=== PATIENT | female | born 1940 | race Hispanic/Latino ===

== ENCOUNTER 2017-09-30 18:47 | Emergency (ER) | payer MEDICARE ==
[~2017-09-30 18:47] MED LIST: ASPI-1197 PO; CLOP75TA32 PO; ERGO400T3 PO; EXEN5PEN2 SQ; EZET10TA26 PO; GLYB-226 PO; ISOS60TA4 PO; LINA5TAB PO; METO-408 PO; SIMV40TA5 PO; TRAN4TAB24 PO
[2017-09-30 19:38] LABS: BASOPHILS % (AUTO) 0.6 % (0.0-5.0); EOSINOPHILS % (AUTO) 0.8 % (0.0-8.0); HEMATOCRIT 35.1 % (36-48); LYMPHOCYTES % (AUTO) 35.5 % (21.0-51.0); MEAN CORPUSCULAR HEMOGLOBIN 27.5 pg (27.0-33.0); MEAN CORPUSCULAR HGB CONC 33.5 g/dL (32.0-36.0); MEAN CORPUSCULAR VOLUME 82.1 fL (79-99); NEUTROPHILS % (AUTO) 51.1 % (40.0-77.0); PLATELET COUNT (AUTO) 257 K/uL (130-400); RED BLOOD CELL COUNT(AUTO) 4.28 MIL/uL (4.00-5.50); WHITE BLOOD COUNT (AUTO) 5.5 K/uL (4.8-10.8)
[2017-09-30 19:51] LABS: CREATININE 0.6 mg/dL (0.5-1.5); POTASSIUM 4.1 mmol/L (3.5-5.1)
[2017-09-30 19:55] LABS: ALBUMIN 3.8 g/dL (3.5-5.0); BILIRUBIN,TOTAL 0.3 mg/dL (0.2-1.0); TOTAL PROTEIN, SERUM 7.2 g/dL (6.0-8.3)
== END 2017-09-30 21:31 | disposition home or self-care (01) ==
LOC: EDH 18:47
DX: R10.13 Epigastric pain (principal); I25.10 Atherosclerotic heart disease of native coronary artery without angina pectoris; E11.9 Type 2 diabetes mellitus without complications; E78.5 Hyperlipidemia, unspecified; I10 Essential (primary) hypertension; Z90.49 Acquired absence of other specified parts of digestive tract; Z98.890 Other specified postprocedural states
CPT/HCPCS: 36415; 80053; 82150; 83690; 84484; 85025; 93005

== ENCOUNTER 2017-10-11 17:01 | Observation (INO) | payer MEDICARE ==
[~2017-10-11] VITALS: Ht 160 cm; Wt 51.3 kg
[2017-10-11] MEDS ORDERED: ASPIRIN 81MG TAB.CHEW ONE (17:28)
[2017-10-11 17:42] LABS: BASOPHILS % (AUTO) 0.6 % (0.0-5.0); EOSINOPHILS % (AUTO) 0.8 % (0.0-8.0); HEMATOCRIT 34.5 % (36-48); LYMPHOCYTES % (AUTO) 29.3 % (21.0-51.0); MEAN CORPUSCULAR HEMOGLOBIN 27.7 pg (27.0-33.0); MEAN CORPUSCULAR HGB CONC 34.1 g/dL (32.0-36.0); MEAN CORPUSCULAR VOLUME 81.3 fL (79-99); MONOCYTES % (AUTO) 12.2 % (3.0-13.0); NEUTROPHILS % (AUTO) 57.1 % (40.0-77.0); PLATELET COUNT (AUTO) 255 K/uL (130-400); RED BLOOD CELL COUNT(AUTO) 4.25 MIL/uL (4.00-5.50); RED CELL DISTRIBUTION WIDTH 15.6 % (11.0-15.5); WHITE BLOOD COUNT (AUTO) 5.6 K/uL (4.8-10.8)
[2017-10-11] MEDS ORDERED: NITROGLYCERIN 0.4 MG SL TAB SL ONE (17:49)
[2017-10-11 18:02] LABS: CREATININE 0.6 mg/dL (0.5-1.5); POTASSIUM 4.2 mmol/L (3.5-5.1)
[2017-10-11 18:06] LABS: ALBUMIN 3.8 g/dL (3.5-5.0); BILIRUBIN,TOTAL 0.4 mg/dL (0.2-1.0); CREATINE KINASE MB 0.7 ng/mL (0.5-3.6); TOTAL PROTEIN, SERUM 7.8 g/dL (6.0-8.3)
[2017-10-11 22:02] LABS: CREATINE KINASE MB < 0.5 ng/mL (0.5-3.6); CREATINE KINASE, TOTAL 49 U/L (21-232); MYOGLOBIN 26 ng/mL (10-92); TROPONIN I < 0.04 ng/mL (0.00-0.06)
[2017-10-12 04:13] LABS: CREATINE KINASE MB < 0.5 ng/mL (0.5-3.6); CREATINE KINASE, TOTAL 44 U/L (21-232); MYOGLOBIN 23 ng/mL (10-92); TROPONIN I < 0.04 ng/mL (0.00-0.06)
[2017-10-12 04:40] VITALS: BP 156/72
[2017-10-12] MEDS ORDERED: OMEP20TA25 PO (05:05)
[2017-10-12] MEDS ORDERED: DULA0.75 SQ (05:05)
[2017-10-12] MEDS ORDERED: GLIP1TAB6 PO (05:05)
[2017-10-12] MEDS: INSULIN R PO SS1 SQ SCH ×4 (06:44→20:49)
[2017-10-12] MEDS: METFORMIN HCL 500 MG TABLET PO SCH ×2 (07:43→16:45)
[2017-10-12] MEDS: GLIPIZIDE 5 MG TABLET PO SCH ×2 (07:43→16:45)
[2017-10-12 08:00] VITALS: BP 112/53
[2017-10-12] MEDS: ISOSORBIDE MONO 60 MG TAB.SR PO SCH (08:45)
[2017-10-12] MEDS: EZETIMIBE 10 MG TAB PO SCH (08:45)
[2017-10-12] MEDS: ASPIRIN 81MG TAB.CHEW PO SCH (08:45)
[2017-10-12] MEDS: CLOPIDOGREL BISULFATE 75 MG TAB PO SCH (08:46)
[2017-10-12] MEDS: METOPROLOL TARTRATE 25 MG TAB PO SCH ×2 (08:46→20:44)
[2017-10-12] MEDS: PANTOPRAZOLE SODIUM 40 MG TABLET.DR PO SCH (08:47)
[2017-10-12] MEDS: LISINOPRIL 20 MG TABLET PO SCH (08:47)
[2017-10-12] MEDS ORDERED: LINAGLIPTIN 5 MG TABLET PO SCH (09:00)
[2017-10-12] MEDS ORDERED: ERGOCALCIFEROL (VITAMIN D2) 50,000 UNIT CAPSULE PO SCH (09:00)
[2017-10-12 11:55] VITALS: BP 103/66
[2017-10-12 16:00] VITALS: BP 109/67
[2017-10-12 19:37] VITALS: BP 116/70
[2017-10-12] MEDS: ATORVASTATIN CALCIUM 20 MG TABLET PO SCH (20:44)
[2017-10-12 23:26] VITALS: BP 101/48
[2017-10-13 04:48] VITALS: BP 101/64
[2017-10-13] MEDS: INSULIN R PO SS1 SQ SCH ×4 (05:46→21:00)
[2017-10-13 07:53] VITALS: BP 109/61
[2017-10-13] MEDS: ISOSORBIDE MONO 60 MG TAB.SR PO SCH (09:00)
[2017-10-13] MEDS: LISINOPRIL 20 MG TABLET PO SCH (09:00)
[2017-10-13] MEDS: ASPIRIN 81MG TAB.CHEW PO SCH (09:02)
[2017-10-13] MEDS: METOPROLOL TARTRATE 25 MG TAB PO SCH ×2 (09:03→22:23)
[2017-10-13] MEDS: PANTOPRAZOLE SODIUM 40 MG TABLET.DR PO SCH (09:04)
[2017-10-13] MEDS: EZETIMIBE 10 MG TAB PO SCH (09:04)
[2017-10-13] MEDS: CLOPIDOGREL BISULFATE 75 MG TAB PO SCH (09:04)
[2017-10-13] MEDS: ACETAMINOPHEN 325 MG TAB PO PRN ×2 (09:18→22:23)
[2017-10-13 11:42] VITALS: BP 112/65
[2017-10-13 15:32] VITALS: BP 137/74
[2017-10-13 20:13] VITALS: BP 149/82
[2017-10-13] MEDS: ATORVASTATIN CALCIUM 20 MG TABLET PO SCH (22:23)
[2017-10-14 00:19] VITALS: BP 123/72
[2017-10-14 03:50] VITALS: BP 127/65
[2017-10-14] MEDS: INSULIN R PO SS1 SQ SCH ×4 (06:12→20:43)
[2017-10-14 07:44] VITALS: BP 137/72
[2017-10-14] MEDS ORDERED: **HM** TRULICITY 0.75MG PO SCH (09:00)
[2017-10-14] MEDS: EZETIMIBE 10 MG TAB PO SCH (09:00)
[2017-10-14] MEDS: CLOPIDOGREL BISULFATE 75 MG TAB PO SCH (09:00)
[2017-10-14] MEDS: LISINOPRIL 20 MG TABLET PO SCH (09:00)
[2017-10-14] MEDS: ISOSORBIDE MONO 60 MG TAB.SR PO SCH (09:00)
[2017-10-14] MEDS: METOPROLOL TARTRATE 25 MG TAB PO SCH ×2 (09:00→20:43)
[2017-10-14] MEDS: ASPIRIN 81MG TAB.CHEW PO SCH (09:00)
[2017-10-14] MEDS: PANTOPRAZOLE SODIUM 40 MG TABLET.DR PO SCH (09:00)
[2017-10-14] MEDS ORDERED: REGADENOSON 0.4 MG/5 ML PF SYG IVP SCH (11:15)
[2017-10-14 11:24] VITALS: BP 132/73
[2017-10-14 16:00] VITALS: BP 167/88
[2017-10-14 20:00] VITALS: BP 146/69
[2017-10-14] MEDS: ATORVASTATIN CALCIUM 20 MG TABLET PO SCH (20:43)
== END 2017-10-14 21:00 | disposition home or self-care (01) ==
LOC: EDH 17:01 → EDHIP 21:30 → 4CH 10-12 05:37
PROVIDERS: ADMIT Internal Medicine Nephrology; ATTEND Internal Medicine Nephrology
DX: R07.89 Other chest pain (principal); I25.10 Atherosclerotic heart disease of native coronary artery without angina pectoris; E11.42 Type 2 diabetes mellitus with diabetic polyneuropathy; E78.00 Pure hypercholesterolemia, unspecified; I10 Essential (primary) hypertension; Z95.5 Presence of coronary angioplasty implant and graft; Z79.899 Other long term (current) drug therapy
CPT/HCPCS: 36415 ×2; 71046; 78452; 80053; 82550 ×3; 82553 ×3; 82948 ×12; 83874 ×2; 84484 ×3; 85025; 93005 ×2; 93017; 96372; 99291; A9500 ×2; G0378 ×71; J1815; J2785; 96374

== ENCOUNTER 2018-06-29 09:04 | Emergency (ER) | payer MEDICARE ==
[~2018-06-29 09:04] MED LIST changes: +DULA0.75 SQ; -EXEN5PEN2 SQ; +GLIP1TAB6 PO; -GLYB-226 PO; +OMEP20TA25 PO
[2018-06-29 10:25] LABS: BASOPHILS % (AUTO) 0.5 % (0.0-5.0); EOSINOPHILS % (AUTO) 0.3 % (0.0-8.0); HEMATOCRIT 40.7 % (36-48); LYMPHOCYTES % (AUTO) 28.2 % (21.0-51.0); MEAN CORPUSCULAR HEMOGLOBIN 27.7 pg (27.0-33.0); MEAN CORPUSCULAR HGB CONC 33.5 g/dL (32.0-36.0); MEAN CORPUSCULAR VOLUME 82.5 fL (79-99); MONOCYTES % (AUTO) 8.9 % (3.0-13.0); NEUTROPHILS % (AUTO) 62.1 % (40.0-77.0); PLATELET COUNT (AUTO) 286 K/uL (130-400); RED BLOOD CELL COUNT(AUTO) 4.93 MIL/uL (4.00-5.50); RED CELL DISTRIBUTION WIDTH 15.1 % (11.0-15.5); WHITE BLOOD COUNT (AUTO) 5.6 K/uL (4.8-10.8)
[2018-06-29] MEDS ORDERED: TETANUS/DIPHTHERIA TOXOID [ADULT] 0.5 ML VIAL IM ONE (10:35)
[2018-06-29 10:37] LABS: CREATININE 0.7 mg/dL (0.5-1.5); POTASSIUM 4.2 mmol/L (3.5-5.1)
[2018-06-29 10:39] LABS: INR 0.94 (0.85-1.15); PARTIAL THROMBOPLASTIN TIME 26.8 SEC (26.3-35.5); PROTHROMBIN TIME 9.9 SEC (9.6-11.6)
[2018-06-29 10:43] LABS: ALBUMIN 4.1 g/dL (3.5-5.0); BILIRUBIN,TOTAL 0.8 mg/dL (0.2-1.0); TOTAL PROTEIN, SERUM 8.2 g/dL (6.0-8.3)
== END 2018-06-29 11:21 | disposition home or self-care (01) ==
LOC: EDH 09:04
DX: S09.90XA Unspecified injury of head, initial encounter (principal); S50.311A Abrasion of right elbow, initial encounter; S50.811A Abrasion of right forearm, initial encounter; I10 Essential (primary) hypertension; E11.9 Type 2 diabetes mellitus without complications; E78.5 Hyperlipidemia, unspecified; I25.10 Atherosclerotic heart disease of native coronary artery without angina pectoris; Z90.710 Acquired absence of both cervix and uterus; Z98.890 Other specified postprocedural states; Z79.4 Long term (current) use of insulin; W01.0XXA Fall on same level from slipping, tripping and stumbling without subsequent striking against object, initial encounter; Y93.89 Activity, other specified; Y92.009 Unspecified place in unspecified non-institutional (private) residence as the place of occurrence of the external cause; Y99.8 Other external cause status
CPT/HCPCS: 36415; 70450; 71045; 72100; 72125; 80053; 82550; 84484; 85025; 85610; 85730; 90471; 90714; 93005

== ENCOUNTER → 2020-08-01 | Outpatient (CLI) | payer MEDICARE ==
[~2020-08-01] MED LIST changes: -EZET10TA26 PO; +EZET10TA48 PO; +REGADENOSON 0.4 MG/5 ML PF SYG IVP SCH; +SIMV-46 PO; -SIMV40TA5 PO
== END | disposition home or self-care (01) ==
LOC: SHCH 08:21
PROVIDERS: ATTEND Internal Medicine Cardiovascular Disease
DX: I25.119 Atherosclerotic heart disease of native coronary artery with unspecified angina pectoris (principal); R05 Cough; R06.00 Dyspnea, unspecified
CPT/HCPCS: 78452; 93017; 96374; A9500 ×2; J2785

== ENCOUNTER 2020-10-26 20:53 | Observation (INO) | payer MEDICARE ==
[~2020-10-26] VITALS: Ht 152.4 cm; Wt 54.4 kg
[~2020-10-26 20:53] MED LIST changes: -ISOS60TA4 PO; +ISOS60TA77 PO; -REGADENOSON 0.4 MG/5 ML PF SYG IVP SCH; -TRAN4TAB24 PO; +TRAN4TAB25 PO
[2020-10-26] MEDS ORDERED: ASPIRIN 325 MG TABLET ONE (21:06)
[2020-10-26 21:09] LABS: BASOPHILS % (AUTO) 0.5 % (0.0-5.0); EOSINOPHILS % (AUTO) 1.2 % (0.0-8.0); LYMPHOCYTES % (AUTO) 48.2 % (21.0-51.0); MEAN CORPUSCULAR HEMOGLOBIN 26.4 pg (27.0-33.0); MEAN CORPUSCULAR HGB CONC 32.1 g/dL (32.0-36.0); MEAN CORPUSCULAR VOLUME 82.1 fL (79-99); MONOCYTES % (AUTO) 12.3 % (3.0-13.0); NEUTROPHILS % (AUTO) 37.8 % (40.0-77.0); PLATELET COUNT (AUTO) 246 K/uL (130-400); RED BLOOD CELL COUNT(AUTO) 4.02 MIL/uL (4.00-5.50); RED CELL DISTRIBUTION WIDTH 16.1 % (11.0-15.5); WHITE BLOOD COUNT (AUTO) 5.8 K/uL (4.8-10.8)
[2020-10-26 21:24] LABS: CREATININE 0.7 mg/dL (0.5-1.5)
[2020-10-26 21:29] LABS: ALBUMIN 3.9 g/dL (3.5-5.0); BILIRUBIN,TOTAL 0.6 mg/dL (0.2-1.0); TOTAL PROTEIN, SERUM 7.1 g/dL (6.0-8.3)
[2020-10-26 21:31] LABS: INR 0.96 (0.85-1.15); PROTHROMBIN TIME 10.5 SEC (9.6-11.6)
[2020-10-26 21:33] LABS: B-TYPE NATRIURETIC PEPTIDE 38 pg/mL (0-100); PARTIAL THROMBOPLASTIN TIME 25.2 SEC (26.3-35.5)
[2020-10-26] MEDS ORDERED: ONDANSETRON HCL 4 MG/2 ML VIAL IVP PRN (23:45)
[2020-10-26] MEDS ORDERED: DEXTROSE 50%-WATER 50 ML DISP.SYRIN IV PRN (23:45)
[2020-10-26] MEDS ORDERED: MORPHINE SULFATE 2 MG/ML 1ML SYG IVP PRN (23:45)
[2020-10-26] MEDS ORDERED: ACETAMINOPHEN 325 MG TAB PO PRN (23:45)
[2020-10-26] MEDS ORDERED: GLUCAGON 1MG KIT 1 MG ML IM PRN (23:45)
[2020-10-27] VITALS: BP 116/72
[2020-10-27 03:47] VITALS: BP 148/75
[2020-10-27] MEDS: INSULIN R PO SS1 SQ SCH ×3 (05:59→17:03)
[2020-10-27] MEDS ORDERED: ATOR40TA71 PO (06:46)
[2020-10-27] MEDS ORDERED: PANT40TA PO (06:46)
[2020-10-27] MEDS ORDERED: GLIP10TA9 PO (06:46)
[2020-10-27] MEDS ORDERED: TRAZ-185 PO (06:46)
[2020-10-27] MEDS ORDERED: CITA-107 PO (06:46)
[2020-10-27 08:12] VITALS: BP 148/62
[2020-10-27] MEDS ORDERED: METOPROLOL TARTRATE 25 MG TAB PO SCH (09:00)
[2020-10-27] MEDS ORDERED: ENOXAPARIN SODIUM 40 MG/0.4 ML SYRINGE SQ SCH (09:00)
[2020-10-27] MEDS ORDERED: ASPIRIN 81 MG EC TAB PO SCH (09:00)
[2020-10-27 12:00] VITALS: BP_SYST 138; BP_SYST 148; BP_DIAS 63; BP_DIAS 67
== END 2020-10-27 18:00 | disposition home or self-care (01) ==
LOC: EDH 20:53 → INTOOBSV 22:31 → EDHIP 22:31 → 4BH 23:40
PROVIDERS: ADMIT Internal Medicine Infectious Disease; ATTEND Internal Medicine Infectious Disease
DX: R07.89 Other chest pain (principal); I25.10 Atherosclerotic heart disease of native coronary artery without angina pectoris; I10 Essential (primary) hypertension; D64.9 Anemia, unspecified; E11.51 Type 2 diabetes mellitus with diabetic peripheral angiopathy without gangrene; E78.5 Hyperlipidemia, unspecified; K21.9 Gastro-esophageal reflux disease without esophagitis; F41.9 Anxiety disorder, unspecified; Z95.5 Presence of coronary angioplasty implant and graft; Z90.710 Acquired absence of both cervix and uterus; Z90.49 Acquired absence of other specified parts of digestive tract; Z79.899 Other long term (current) drug therapy
CPT/HCPCS: 36415; 71045; 80053; 82550; 82948 ×3; 83880; 84484 ×3; 85025; 85610; 85730; 93005; 99285; G0378 ×19

== ENCOUNTER 2021-12-22 18:22 | Emergency (ER) | payer MEDICARE ==
[~2021-12-22] VITALS: Ht 160 cm; Wt 47.6 kg
[~2021-12-22 18:22] MED LIST changes: +ATOR40TA71 PO; +CITA-107 PO; +CLOP75TA14 PO; -CLOP75TA32 PO; +GLIP10TA9 PO; -GLIP1TAB6 PO; -LINA5TAB PO; +MECL-160 PO; +MELA10TA2 PO; +METO-391 PO; -METO-408 PO; -OMEP20TA25 PO; +PANT40TA PO; +ROPI0.5T7 PO; -SIMV-46 PO; +TRAZ-185 PO
[2021-12-22] MEDS ORDERED: ACETAMINOPHEN 500 MG TABLET PO ONE (18:30)
[2021-12-22 19:00] VITALS: BP 155/77
[2021-12-22] MEDS ORDERED: ACET-66 PO (19:19)
== END 2021-12-22 19:59 | disposition home or self-care (01) ==
LOC: EDH 18:22
DX: S00.03XA Contusion of scalp, initial encounter (principal); X58.XXXA Exposure to other specified factors, initial encounter; I11.0 Hypertensive heart disease with heart failure; I50.9 Heart failure, unspecified; E11.9 Type 2 diabetes mellitus without complications; E78.00 Pure hypercholesterolemia, unspecified; Z79.02 Long term (current) use of antithrombotics/antiplatelets; Z79.82 Long term (current) use of aspirin; Z79.899 Other long term (current) drug therapy; W18.39XA Other fall on same level, initial encounter; Y93.89 Activity, other specified; Y92.89 Other specified places as the place of occurrence of the external cause; Y99.8 Other external cause status
CPT/HCPCS: 70450; 71045; 72125; 72170; 93005

== ENCOUNTER 2022-02-21 13:52 | Inpatient (IN) | payer MEDICARE ==
[~2022-02-21] VITALS: Ht 152.4 cm; Wt 53.1 kg
[~2022-02-21 13:52] MED LIST changes: +ACET-66 PO
[2022-02-21] MEDS ORDERED: FAMOTIDINE 20MG TAB PO ONE (14:30)
[2022-02-21] MEDS ORDERED: ONDANSETRON 4MG INJ IVP ONE (14:30)
[2022-02-21] MEDS ORDERED: MORPHINE 2 MG SYG IVP ONE (14:30)
[2022-02-21] MEDS ORDERED: LACTATED RINGERS 1000ML 1,000 ML IV ONE (14:30)
[2022-02-21 14:32] LABS: APPEARANCE,URINE Clear (CLEAR); BILIRUBIN,URINE Negative (NEGATIVE); COLOR,URINE Yellow (YELLOW); GLUCOSE, URINE (UA) >=1000 mg/dL (NEGATIVE); KETONES,URINE Negative (NEGATIVE); LEUKOCYTE ESTERASE ,URINE Negative (NEGATIVE); NITRATE,URINE Negative (NEGATIVE); OCCULT BLOOD,URINE Negative (NEGATIVE); PH,URINE 5.5 (5.0-8.0); PROTEIN,URINE Negative (NEGATIVE)
[2022-02-21 14:48] LABS: BASOPHILS % (AUTO) 0.5 % (0.0-5.0); EOSINOPHILS % (AUTO) 0.5 % (0.0-8.0); HEMATOCRIT 39.5 % (36-48); MEAN CORPUSCULAR HEMOGLOBIN 25.8 pg (27.0-33.0); MEAN CORPUSCULAR HGB CONC 31.4 g/dL (32.0-36.0); MEAN CORPUSCULAR VOLUME 82.3 fL (79-99); MONOCYTES % (AUTO) 8.8 % (3.0-13.0); PLATELET COUNT (AUTO) 295 K/uL (130-400); RED CELL DISTRIBUTION WIDTH 15.3 % (11.0-15.5); WHITE BLOOD COUNT (AUTO) 5.9 K/uL (4.8-10.8)
[2022-02-21 14:59] LABS: BACTERIA,URINE Rare /HPF (None Seen); RBC,URINE 0-1 /HPF (0-1); SQUAMOUS EPITHELIAL CELL,UR Rare /HPF (0-2); WBC,URINE 0-1 /HPF (0-1)
[2022-02-21 15:00] LABS: CREATININE 0.9 mg/dL (0.5-1.5); POTASSIUM 4.1 mmol/L (3.5-5.1)
[2022-02-21] MEDS ORDERED: IOHEXOL 350 MG/ML 100ML INFUS..BTL IV ONE (15:00)
[2022-02-21 15:07] LABS: ALBUMIN 3.6 g/dL (3.5-5.0)
[2022-02-21] MEDS ORDERED: ASPIRIN 81MG CHEW TAB PO ONE (15:30)
[2022-02-21] MEDS ORDERED: CLOPIDOGREL 300MG TAB ONE (16:19)
[2022-02-21] MEDS ORDERED: ONDANSETRON 4MG INJ IVP PRN (16:30)
[2022-02-21] MEDS ORDERED: TRAZ-187 PO (16:42)
[2022-02-21] MEDS ORDERED: MECLIZINE HCL 25 MG TABLET PO PRN (17:00)
[2022-02-21] MEDS ORDERED: CLOPIDOGREL 300MG TAB PO ONE (17:00)
[2022-02-21] MEDS ORDERED: HEPARIN 25,000 UNITS/250ML D5W 250 ML IV SCH (17:00)
[2022-02-21 17:33] LABS: INR 0.93 (0.85-1.15)
[2022-02-21 17:35] LABS: PARTIAL THROMBOPLASTIN TIME 25.7 SEC (26.3-35.5)
[2022-02-21] MEDS: GLIPIZIDE 5 MG TABLET PO SCH (20:57)
[2022-02-21] MEDS: ATORVASTATIN 40 MG TABLET PO SCH (20:57)
[2022-02-21] MEDS: TRAZODONE HCL 100 MG TABLET PO SCH (20:57)
[2022-02-21 21:29] VITALS: BP 122/63
[2022-02-21 23:32] VITALS: BP 115/56
[2022-02-22 00:02] LABS: INR 0.98 (0.85-1.15); PROTHROMBIN TIME 10.7 SEC (9.6-11.6)
[2022-02-22 00:03] LABS: PARTIAL THROMBOPLASTIN TIME 52.7 SEC (26.3-35.5)
[2022-02-22 03:30] VITALS: BP 128/64
[2022-02-22 05:39] LABS: BASOPHILS % (AUTO) 0.6 % (0.0-5.0); EOSINOPHILS % (AUTO) 1.7 % (0.0-8.0); HEMATOCRIT 37.7 % (36-48); LYMPHOCYTES % (AUTO) 32.8 % (21.0-51.0); MEAN CORPUSCULAR HGB CONC 31.6 g/dL (32.0-36.0); MEAN CORPUSCULAR VOLUME 82.5 fL (79-99); MONOCYTES % (AUTO) 13.8 % (3.0-13.0); NEUTROPHILS % (AUTO) 50.9 % (40.0-77.0); PLATELET COUNT (AUTO) 253 K/uL (130-400); RED BLOOD CELL COUNT(AUTO) 4.57 MIL/uL (4.00-5.50); RED CELL DISTRIBUTION WIDTH 15.2 % (11.0-15.5); WHITE BLOOD COUNT (AUTO) 5.3 K/uL (4.8-10.8)
[2022-02-22 05:47] LABS: HEMOGLOBIN A1C 8.1 % (4.0-6.0)
[2022-02-22 06:11] LABS: CREATININE 0.7 mg/dL (0.5-1.5); MAGNESIUM 1.6 mg/dL (1.80-2.40)
[2022-02-22] MEDS: PANTOPRAZOLE 40 MG TAB DR PO SCH (06:31)
[2022-02-22 07:50] VITALS: BP 135/61
[2022-02-22] MEDS: GLIPIZIDE 5 MG TABLET PO SCH ×2 (08:00→17:00)
[2022-02-22] MEDS: PANTOPRAZOLE 40 MG/VIAL IVP SCH (08:19)
[2022-02-22] MEDS: METOPROLOL SUCCINATE 50 MG TAB.SR.24H PO SCH (08:20)
[2022-02-22] MEDS: ROPINIROLE HCL 0.25 MG TABLET PO SCH (08:20)
[2022-02-22] MEDS: CITALOPRAM 20 MG TABLET PO SCH (08:20)
[2022-02-22] MEDS: EZETIMIBE 10 MG TAB PO SCH (08:20)
[2022-02-22] MEDS: ASPIRIN 325MG TAB PO SCH (08:20)
[2022-02-22] MEDS ORDERED: CLOPIDOGREL 75MG TAB PO SCH (09:00)
[2022-02-22] MEDS ORDERED: ENOXAPARIN SODIUM 40 MG/0.4 ML SYRINGE SQ SCH (09:00)
[2022-02-22] MEDS ORDERED: ISOSORBIDE MONO 60MG SR TAB PO SCH (09:00)
[2022-02-22 11:22] VITALS: BP 135/71
[2022-02-22 15:53] VITALS: BP 151/65
[2022-02-22 19:33] VITALS: BP 129/70
[2022-02-22] MEDS: TRAZODONE HCL 100 MG TABLET PO SCH (20:07)
[2022-02-22] MEDS: ATORVASTATIN 40 MG TABLET PO SCH (20:07)
[2022-02-22 23:00] VITALS: BP 162/84
[2022-02-23] VITALS (8 sets, daily range): BP systolic 86–155; BP diastolic 56–79
[2022-02-23 03:22] LABS: ABG BASE EXCESS 3.5 mmol/L (-2.0-3.0); ABG HCO3 27.6 mmol/L (21.0-28.0); ABG OXYGEN SATURATION 97.4 % (95.0-99.0); ABG PCO2 40 mmHg (32-45)
[2022-02-23 04:20] LABS: HEMATOCRIT 36.6 % (36-48); MEAN CORPUSCULAR HEMOGLOBIN 25.7 pg (27.0-33.0); MEAN CORPUSCULAR HGB CONC 31.7 g/dL (32.0-36.0); MEAN CORPUSCULAR VOLUME 81.2 fL (79-99); RED BLOOD CELL COUNT(AUTO) 4.51 MIL/uL (4.00-5.50); RED CELL DISTRIBUTION WIDTH 15.2 % (11.0-15.5); WHITE BLOOD COUNT (AUTO) 5.1 K/uL (4.8-10.8)
[2022-02-23 04:22] LABS: HEMOGLOBIN A1C 8.1 % (4.0-6.0); INR 0.95 (0.85-1.15); PROTHROMBIN TIME 10.4 SEC (9.6-11.6)
[2022-02-23 04:23] LABS: PARTIAL THROMBOPLASTIN TIME 25.6 SEC (26.3-35.5)
[2022-02-23 04:35] LABS: ALBUMIN 3.1 g/dL (3.5-5.0); CREATININE 0.8 mg/dL (0.5-1.5); POTASSIUM 3.9 mmol/L (3.5-5.1); TOTAL PROTEIN, SERUM 7.1 g/dL (6.0-8.3)
[2022-02-23] MEDS: PANTOPRAZOLE 40 MG TAB DR PO SCH (06:02)
[2022-02-23] MEDS: GLIPIZIDE 5 MG TABLET PO SCH (08:00)
[2022-02-23] MEDS ORDERED: EPINEPHRINE PF 1MG AMP 10 MG in 0.9% NACL 250ML 240 ML IV PRN ×2 (09:00→17:30)
[2022-02-23] MEDS ORDERED: AMINOCAPROIC ACID 5,000MG VIAL 15,000 MG in 0.9% NACL 500ML IV.SOLN 420 ML IV PRN (09:00)
[2022-02-23] MEDS: METOPROLOL SUCCINATE 50 MG TAB.SR.24H PO SCH ×2 (09:00→10:18)
[2022-02-23] MEDS: ROPINIROLE HCL 0.25 MG TABLET PO SCH (09:00)
[2022-02-23] MEDS ORDERED: NOREPINEPHRINE BITARTRATE 8 MG in DEXTROSE 5%-WATER 250 ML IV PRN (09:00)
[2022-02-23] MEDS: ASPIRIN 325MG TAB PO SCH (09:00)
[2022-02-23] MEDS: CITALOPRAM 20 MG TABLET PO SCH (09:00)
[2022-02-23] MEDS: PANTOPRAZOLE 40 MG/VIAL IVP SCH (09:25)
[2022-02-23] MEDS: EZETIMIBE 10 MG TAB PO SCH (10:03)
[2022-02-23] MEDS ORDERED: NITROGLYCERIN 50MG/D5W 250ML 1 BOT ONE (13:12)
[2022-02-23] MEDS ORDERED: CEFAZOLIN SODIUM 1 GM VIAL IVP PRN (14:00)
[2022-02-23] MEDS ORDERED: FENTANYL CITRATE PF 50 MCG/1 ML 20ML VIAL IJ ONE (15:16)
[2022-02-23] MEDS ORDERED: PROTAMINE SULFATE 10 MG/ML 25ML VIAL IV ONE (15:16)
[2022-02-23] MEDS ORDERED: PROPOFOL 10 MG/ML 20ML VIAL IV ONE (15:16)
[2022-02-23] MEDS ORDERED: AMINOCAPROIC ACID 5,000MG VIAL ONE (15:16)
[2022-02-23] MEDS ORDERED: HEPARIN 10,000 UNIT/10ML (1,000 UNIT/ML) VIAL ONE ×2 (15:16→16:34)
[2022-02-23] MEDS ORDERED: ESMOLOL HCL 10 MG/ML 10 ML VIAL ONE (15:16)
[2022-02-23] MEDS ORDERED: LIDOCAINE PF 100MG/5ML (2%) SYRINGE 5ML ONE (15:16)
[2022-02-23] MEDS ORDERED: SODIUM BICARB 50MEQ 50ML VIAL 100 ML ONE (15:16)
[2022-02-23] MEDS ORDERED: NOREPINEPHRINE BITARTRATE 1 MG/1 ML ML IV ONE (15:16)
[2022-02-23] MEDS ORDERED: EPINEPHRINE PF 1MG AMP ONE (15:16)
[2022-02-23] MEDS ORDERED: KETAMINE 50MG/ML SYRINGE 50 MG/ML DISP.SYRIN IV ONE (15:17)
[2022-02-23] MEDS ORDERED: ROCURONIUM 10MG/1ML SYR 10 MG/ML ML ONE (15:17)
[2022-02-23] MEDS ORDERED: MIDAZOLAM HCL 1 MG/ML 2ML VIAL ONE (15:17)
[2022-02-23] MEDS ORDERED: CEFAZOLIN SODIUM 1 GM VIAL ONE (16:24)
[2022-02-23] MEDS ORDERED: PAPAVERINE HCL 30 MG/ML 2ML VIAL ONE (16:24)
[2022-02-23] MEDS ORDERED: ROPIVACAINE 0.5% 5MG/ML 30ML IJ ONE (16:25)
[2022-02-23 16:31] LABS: ABG BASE EXCESS -5.7 mmol/L (-2.0-3.0); ABG HCO3 19.4 mmol/L (21.0-28.0); ABG OXYGEN SATURATION 99.6 % (95.0-99.0); ABG PCO2 36 mmHg (32-45)
[2022-02-23] MEDS ORDERED: ACETAMINOPHEN 650 MG SUPPOSITORY RC PRN (17:30)
[2022-02-23] MEDS ORDERED: NOREPINEPHRIN 4MG/NS 250ML 250 ML IV PRN (17:30)
[2022-02-23] MEDS ORDERED: MORPHINE 2 MG SYG IV PRN ×2 (17:30)
[2022-02-23] MEDS ORDERED: TRAMADOL HCL 50 MG TABLET PO PRN (17:30)
[2022-02-23] MEDS ORDERED: ONDANSETRON 4MG INJ IV PRN (17:30)
[2022-02-23] MEDS ORDERED: MAGNESIUM 2GM PREMIX 50ML 50 ML IV PRN (17:30)
[2022-02-23] MEDS ORDERED: NITROGLYCERIN 50MG/D5W 250ML 250 BOT IV SCH (17:30)
[2022-02-23] MEDS ORDERED: PROPOFOL 1000 MG/100 ML 100 ML IV PRN (17:30)
[2022-02-23] MEDS ORDERED: GLUCAGON 1MG KIT 1 MG ML IM PRN (17:30)
[2022-02-23] MEDS ORDERED: 0.9%NACL 10ML VIAL IVP PRN (17:30)
[2022-02-23] MEDS ORDERED: 0.9% NACL 500ML IV.SOLN 500 ML IV SCH (17:30)
[2022-02-23] MEDS ORDERED: DEXTROSE 50%-WATER 50 ML DISP.SYRIN IV PRN (17:30)
[2022-02-23] MEDS ORDERED: 0.9%NACL 1000ML 1,000 ML IV SCH (17:30)
[2022-02-23] MEDS ORDERED: POTASSIUM PHOS 15 mMOL+NS250ML 250 ML IV PRN (17:30)
[2022-02-23] MEDS ORDERED: INSULIN REGULAR, HUMAN 3ML 100 UNIT in 0.9%NACL 100ML 99 ML IV SCH ×2 (17:30)
[2022-02-23] MEDS ORDERED: ACETAMINOPHEN 325 MG TAB PO PRN (17:30)
[2022-02-23] MEDS ORDERED: ALBUMIN (HUMAN) 5% 250 ML IV PRN (17:30)
[2022-02-23] MEDS ORDERED: AMINOCAPROIC ACID 5,000MG VIAL 15,000 MG in 0.9% NACL 250ML 250 ML IV SCH (17:30)
[2022-02-23 17:38] LABS: ABG BASE EXCESS -1.8 mmol/L (-2.0-3.0); ABG HCO3 20.9 mmol/L (21.0-28.0); ABG OXYGEN SATURATION 99.2 % (95.0-99.0); ABG PCO2 28 mmHg (32-45)
[2022-02-23] MEDS ORDERED: 0.2% ROPIVACAINE 600ML Q-PUMP IRRIG SCH (18:00)
[2022-02-23 18:24] LABS: ABG BASE EXCESS -7.8 mmol/L (-2.0-3.0); ABG HCO3 17.2 mmol/L (21.0-28.0); ABG OXYGEN SATURATION 99.2 % (95.0-99.0); ABG PCO2 33 mmHg (32-45)
[2022-02-23] MEDS ORDERED: EPHEDRINE SULFATE 50 MG/ML AMPULE ONE (19:01)
[2022-02-23 19:30] LABS: HEMATOCRIT 26.5 % (36-48); MEAN CORPUSCULAR HEMOGLOBIN 27.2 pg (27.0-33.0); MEAN CORPUSCULAR HGB CONC 32.8 g/dL (32.0-36.0); MEAN CORPUSCULAR VOLUME 82.8 fL (79-99); RED BLOOD CELL COUNT(AUTO) 3.2 MIL/uL (4.00-5.50); RED CELL DISTRIBUTION WIDTH 14.7 % (11.0-15.5); WHITE BLOOD COUNT (AUTO) 16.9 K/uL (4.8-10.8)
[2022-02-23 19:40] LABS: ABG BASE EXCESS 0.5 mmol/L (-2.0-3.0); ABG HCO3 25.2 mmol/L (21.0-28.0); ABG OXYGEN SATURATION 98.5 % (95.0-99.0); ABG PCO2 41 mmHg (32-45)
[2022-02-23 19:41] LABS: INR 1.31 (0.85-1.15); PROTHROMBIN TIME 14.1 SEC (9.6-11.6)
[2022-02-23 19:42] LABS: PARTIAL THROMBOPLASTIN TIME 33.3 SEC (26.3-35.5)
[2022-02-23 19:45] LABS: CREATININE 0.6 mg/dL (0.5-1.5); MAGNESIUM 0.8 mg/dL (1.80-2.40)
[2022-02-23] MEDS: POTASSIUM CHLORIDE 20MEQ/100ML 100 ML IV PRN ×2 (19:55→21:18)
[2022-02-23] MEDS ORDERED: ASPIRIN 81MG CHEW TAB PO ONE (20:00)
[2022-02-23] MEDS: CALCIUM GLUC 1GM 1 GM in 0.9%NACL 50ML 50 ML IV PRN ×2 (20:11→22:11)
[2022-02-23 21:00] LABS: ABG BASE EXCESS -4.8 mmol/L (-2.0-3.0); ABG HCO3 20.2 mmol/L (21.0-28.0); ABG OXYGEN SATURATION 98.5 % (95.0-99.0); ABG PCO2 37 mmHg (32-45)
[2022-02-23] MEDS ORDERED: VASOPRESSIN 20 UNITS in 0.9%NACL 100ML 100 ML IV SCH (21:00)
[2022-02-23] MEDS: SODIUM BICARB 50MEQ 50ML VIAL IV PRN ×2 (21:16→21:17)
[2022-02-23] MEDS: ATORVASTATIN 40 MG TABLET PO SCH (21:36)
[2022-02-23] MEDS: FAMOTIDINE 20MG VIAL IV SCH (21:36)
[2022-02-23] MEDS ORDERED: ASPIRIN 81MG CHEW TAB PO SCH (22:00)
[2022-02-23] MEDS ORDERED: NOREPINEPHRINE BITARTRATE 8 MG in 0.9% NACL 250ML 250 ML IV PRN (22:00)
[2022-02-23 22:02] LABS: ABG BASE EXCESS 4.4 mmol/L (-2.0-3.0); ABG HCO3 28.4 mmol/L (21.0-28.0); ABG OXYGEN SATURATION 98.5 % (95.0-99.0); ABG PCO2 40 mmHg (32-45)
[2022-02-23] MEDS ORDERED: AMIODARONE 900MG VIAL IV STA (22:19)
[2022-02-23] MEDS ORDERED: AMIODARONE 150MG VIAL IV STA (22:19)
[2022-02-23] MEDS ORDERED: AMIODARONE 150MG VIAL ONE ×4 (22:24→22:52)
[2022-02-23] MEDS ORDERED: AMIODARONE 150MG VIAL 150 MG in DEXTROSE 5%-WATER 100 ML IV SCH (22:30)
[2022-02-23] MEDS ORDERED: AMIODARONE 900MG VIAL 360 MG in DEXTROSE 5%-WATER 200 ML IV SCH (22:30)
[2022-02-23] MEDS ORDERED: AMIODARONE 900MG VIAL 540 MG in DEXTROSE 5%-WATER 300 ML IV SCH (22:30)
[2022-02-23 23:03] LABS: ABG BASE EXCESS 0.2 mmol/L (-2.0-3.0); ABG HCO3 24.5 mmol/L (21.0-28.0); ABG OXYGEN SATURATION 97.5 % (95.0-99.0); ABG PCO2 39 mmHg (32-45)
[2022-02-23] MEDS: CEFAZOLIN SODIUM 1 GM VIAL IV SCH (23:28)
[2022-02-23 23:59] LABS: ABG BASE EXCESS -3.3 mmol/L (-2.0-3.0); ABG HCO3 20.8 mmol/L (21.0-28.0); ABG OXYGEN SATURATION 98.2 % (95.0-99.0); ABG PCO2 34 mmHg (32-45)
[2022-02-24] VITALS (57 sets, daily range): BP systolic 93–158; BP diastolic 41–84
[2022-02-24] MEDS: SODIUM BICARB 50MEQ 50ML VIAL IV PRN ×3 (00:13→02:30)
[2022-02-24] MEDS: POTASSIUM CHLORIDE 20MEQ/100ML 100 ML IV PRN ×4 (00:14→05:32)
[2022-02-24 01:13] LABS: ABG HCO3 27.3 mmol/L (21.0-28.0); ABG OXYGEN SATURATION 98.4 % (95.0-99.0); ABG PCO2 41 mmHg (32-45)
[2022-02-24] MEDS: CALCIUM GLUC 1GM 1 GM in 0.9%NACL 50ML 50 ML IV PRN ×2 (01:28→03:33)
[2022-02-24 02:19] LABS: ABG BASE EXCESS -1.3 mmol/L (-2.0-3.0); ABG HCO3 24.7 mmol/L (21.0-28.0); ABG OXYGEN SATURATION 98.3 % (95.0-99.0); ABG PCO2 47 mmHg (32-45)
[2022-02-24 03:23] LABS: CREATININE 0.9 mg/dL (0.5-1.5); MAGNESIUM 2.2 mg/dL (1.80-2.40); POTASSIUM 3.7 mmol/L (3.5-5.1)
[2022-02-24 03:28] LABS: ABG BASE EXCESS 2.3 mmol/L (-2.0-3.0); ABG HCO3 26.5 mmol/L (21.0-28.0); ABG OXYGEN SATURATION 98.7 % (95.0-99.0); ABG PCO2 40 mmHg (32-45)
[2022-02-24 03:30] LABS: HEMATOCRIT 41.5 % (36-48); MEAN CORPUSCULAR HEMOGLOBIN 27.3 pg (27.0-33.0); MEAN CORPUSCULAR HGB CONC 33.3 g/dL (32.0-36.0); RED BLOOD CELL COUNT(AUTO) 5.06 MIL/uL (4.00-5.50); RED CELL DISTRIBUTION WIDTH 15.3 % (11.0-15.5); WHITE BLOOD COUNT (AUTO) 11.9 K/uL (4.8-10.8)
[2022-02-24 03:43] LABS: INR 1.19 (0.85-1.15); PROTHROMBIN TIME 12.8 SEC (9.6-11.6)
[2022-02-24 03:44] LABS: PARTIAL THROMBOPLASTIN TIME 25.9 SEC (26.3-35.5)
[2022-02-24 04:33] LABS: ABG BASE EXCESS 1.6 mmol/L (-2.0-3.0); ABG OXYGEN SATURATION 98.7 % (95.0-99.0); ABG PCO2 40 mmHg (32-45)
[2022-02-24 05:25] LABS: ABG BASE EXCESS -0.1 mmol/L (-2.0-3.0); ABG HCO3 25.7 mmol/L (21.0-28.0); ABG OXYGEN SATURATION 98.4 % (95.0-99.0); ABG PCO2 46 mmHg (32-45)
[2022-02-24] MEDS: CEFAZOLIN SODIUM 1 GM VIAL IV SCH ×2 (05:31→16:36)
[2022-02-24 06:29] LABS: ABG BASE EXCESS 0.7 mmol/L (-2.0-3.0); ABG HCO3 26.7 mmol/L (21.0-28.0); ABG OXYGEN SATURATION 98.6 % (95.0-99.0); ABG PCO2 48 mmHg (32-45)
[2022-02-24 08:52] LABS: ABG BASE EXCESS -2.8 mmol/L (-2.0-3.0); ABG HCO3 22.8 mmol/L (21.0-28.0); ABG OXYGEN SATURATION 98.3 % (95.0-99.0); ABG PCO2 43 mmHg (32-45)
[2022-02-24] MEDS: METOPROLOL SUCCINATE 50 MG TAB.SR.24H PO SCH (09:00)
[2022-02-24] MEDS: FUROSEMIDE 20MG VIAL IV SCH ×2 (09:00→19:01)
[2022-02-24 09:29] LABS: CREATININE 0.9 mg/dL (0.5-1.5); POTASSIUM 3.9 mmol/L (3.5-5.1)
[2022-02-24 10:19] LABS: ABG BASE EXCESS 1.7 mmol/L (-2.0-3.0); ABG HCO3 28.2 mmol/L (21.0-28.0); ABG OXYGEN SATURATION 98.8 % (95.0-99.0); ABG PCO2 51 mmHg (32-45)
[2022-02-24] MEDS: EZETIMIBE 10 MG TAB PO SCH (11:26)
[2022-02-24] MEDS: FAMOTIDINE 20MG VIAL IV SCH ×2 (11:26→20:14)
[2022-02-24] MEDS: CITALOPRAM 20 MG TABLET PO SCH (11:26)
[2022-02-24] MEDS: ASPIRIN 81 MG EC TAB PO SCH (11:26)
[2022-02-24] MEDS ORDERED: ROPIVACAINE 0.2% 2MG/ML 100ML VIAL EP ONE (13:43)
[2022-02-24 14:01] LABS: ABG BASE EXCESS 2.8 mmol/L (-2.0-3.0); ABG HCO3 29.2 mmol/L (21.0-28.0); ABG OXYGEN SATURATION 98.1 % (95.0-99.0); ABG PCO2 52 mmHg (32-45)
[2022-02-24 18:37] LABS: ABG BASE EXCESS 0.4 mmol/L (-2.0-3.0); ABG HCO3 25.9 mmol/L (21.0-28.0); ABG OXYGEN SATURATION 96.6 % (95.0-99.0); ABG PCO2 46 mmHg (32-45)
[2022-02-24] MEDS ORDERED: INSULIN REGULAR, HUMAN 3ML 100 UNIT in 0.9%NACL 100ML 99 ML IV PRN ×2 (19:30)
[2022-02-24] MEDS: AMIODARONE 200 MG TABLET PO SCH (20:14)
[2022-02-24] MEDS: DEXTROSE 5%-WATER 1,000 ML IV SCH (20:14)
[2022-02-24] MEDS: ATORVASTATIN 40 MG TABLET PO SCH (20:14)
[2022-02-24] MEDS ORDERED: INSULIN HUMULIN R 100 UNIT/ML 3ML SQ SCH (21:00)
[2022-02-25] VITALS (70 sets, daily range): BP systolic 91–158; BP diastolic 33–83
[2022-02-25 03:46] LABS: HEMATOCRIT 34.1 % (36-48); MEAN CORPUSCULAR HEMOGLOBIN 26.8 pg (27.0-33.0); MEAN CORPUSCULAR HGB CONC 32.3 g/dL (32.0-36.0); NUCLEATED RED BLOOD CELLS 0.2 % (0.0-0.19); RED BLOOD CELL COUNT(AUTO) 4.11 MIL/uL (4.00-5.50); RED CELL DISTRIBUTION WIDTH 16.4 % (11.0-15.5); WHITE BLOOD COUNT (AUTO) 18.8 K/uL (4.8-10.8)
[2022-02-25 03:58] LABS: CREATININE 0.7 mg/dL (0.5-1.5); POTASSIUM 4.2 mmol/L (3.5-5.1)
[2022-02-25] MEDS: AMIODARONE 200 MG TABLET PO SCH (08:24)
[2022-02-25] MEDS: FAMOTIDINE 20MG VIAL IV SCH ×2 (08:24→20:45)
[2022-02-25] MEDS: CITALOPRAM 20 MG TABLET PO SCH (08:24)
[2022-02-25] MEDS: EZETIMIBE 10 MG TAB PO SCH (08:25)
[2022-02-25] MEDS: FUROSEMIDE 20 MG TABLET PO SCH ×3 (08:25→16:06)
[2022-02-25] MEDS: ASPIRIN 81 MG EC TAB PO SCH (08:29)
[2022-02-25] MEDS ORDERED: DEXTROSE 50%-WATER 50 ML DISP.SYRIN IV PRN (08:30)
[2022-02-25] MEDS ORDERED: GLUCAGON 1MG KIT 1 MG ML IM PRN (08:30)
[2022-02-25] MEDS: METOPROLOL TARTRATE 25 MG TAB PO SCH ×2 (09:00→20:24)
[2022-02-25] MEDS ORDERED: ALBUMIN (HUMAN) 5% 250 ML IV SCH (11:00)
[2022-02-25] MEDS: INSULIN HUMULIN R 100 UNIT/ML 3ML SQ SCH ×3 (11:30→20:43)
[2022-02-25] MEDS: DEXTROSE 5%-WATER 1,000 ML IV SCH (11:40)
[2022-02-25] MEDS: MIDODRINE HCL 5 MG TABLET PO SCH ×2 (14:08→20:44)
[2022-02-25] MEDS: TRAMADOL HCL 50 MG TABLET PO PRN (14:56)
[2022-02-25] MEDS: ATORVASTATIN 40 MG TABLET PO SCH (20:44)
[2022-02-26] VITALS (24 sets, daily range): BP systolic 86–133; BP diastolic 41–64
[2022-02-26 04:14] LABS: HEMATOCRIT 30.1 % (36-48); MEAN CORPUSCULAR HEMOGLOBIN 27.5 pg (27.0-33.0); MEAN CORPUSCULAR HGB CONC 31.9 g/dL (32.0-36.0); MEAN CORPUSCULAR VOLUME 86.2 fL (79-99); NUCLEATED RED BLOOD CELLS 0.4 % (0.0-0.19); RED BLOOD CELL COUNT(AUTO) 3.49 MIL/uL (4.00-5.50); RED CELL DISTRIBUTION WIDTH 16.7 % (11.0-15.5); WHITE BLOOD COUNT (AUTO) 17.1 K/uL (4.8-10.8)
[2022-02-26] MEDS: DEXTROSE 5%-WATER 1,000 ML IV SCH (04:20)
[2022-02-26 04:22] LABS: CREATININE 0.8 mg/dL (0.5-1.5); POTASSIUM 4.5 mmol/L (3.5-5.1)
[2022-02-26] MEDS: INSULIN HUMULIN R 100 UNIT/ML 3ML SQ SCH ×4 (06:43→20:11)
[2022-02-26] MEDS: METOPROLOL TARTRATE 25 MG TAB PO SCH (09:00)
[2022-02-26] MEDS: AMIODARONE 200 MG TABLET PO SCH (09:02)
[2022-02-26] MEDS: EZETIMIBE 10 MG TAB PO SCH (09:02)
[2022-02-26] MEDS: FUROSEMIDE 20 MG TABLET PO SCH (09:02)
[2022-02-26] MEDS: ENOXAPARIN SODIUM 30 MG/0.3 ML SQ SCH (09:02)
[2022-02-26] MEDS: ASPIRIN 81 MG EC TAB PO SCH (09:02)
[2022-02-26] MEDS: CITALOPRAM 20 MG TABLET PO SCH (09:02)
[2022-02-26] MEDS: MIDODRINE HCL 5 MG TABLET PO SCH ×3 (09:02→21:11)
[2022-02-26] MEDS: FAMOTIDINE 20MG VIAL IV SCH (09:03)
[2022-02-26] MEDS: FUROSEMIDE 20MG VIAL IV SCH ×2 (11:55→23:42)
[2022-02-26] MEDS ORDERED: FUROSEMIDE 20MG VIAL IV SCH (12:00)
[2022-02-26] MEDS: FAMOTIDINE 20MG TAB PO SCH (21:00)
[2022-02-26] MEDS ORDERED: FAMOTIDINE 20MG TAB ONE (21:09)
[2022-02-26] MEDS: ATORVASTATIN 40 MG TABLET PO SCH (21:11)
[2022-02-26] MEDS: ACETAMINOPHEN 325 MG TAB PO PRN (21:13)
[2022-02-27] VITALS (13 sets, daily range): BP systolic 87–127; BP diastolic 45–60
[2022-02-27 03:48] LABS: HEMATOCRIT 30.9 % (36-48); MEAN CORPUSCULAR HEMOGLOBIN 27.4 pg (27.0-33.0); MEAN CORPUSCULAR HGB CONC 32.4 g/dL (32.0-36.0); MEAN CORPUSCULAR VOLUME 84.7 fL (79-99); NUCLEATED RED BLOOD CELLS 0.1 % (0.0-0.19); RED BLOOD CELL COUNT(AUTO) 3.65 MIL/uL (4.00-5.50); RED CELL DISTRIBUTION WIDTH 16.4 % (11.0-15.5); WHITE BLOOD COUNT (AUTO) 13.7 K/uL (4.8-10.8)
[2022-02-27 04:09] LABS: CREATININE 0.9 mg/dL (0.5-1.5); POTASSIUM 4.1 mmol/L (3.5-5.1)
[2022-02-27] MEDS: INSULIN HUMULIN R 100 UNIT/ML 3ML SQ SCH ×4 (05:32→20:32)
[2022-02-27] MEDS: CITALOPRAM 20 MG TABLET PO SCH (09:19)
[2022-02-27] MEDS: FAMOTIDINE 20MG TAB PO SCH (09:20)
[2022-02-27] MEDS: EZETIMIBE 10 MG TAB PO SCH (09:20)
[2022-02-27] MEDS: ASPIRIN 81 MG EC TAB PO SCH (09:20)
[2022-02-27] MEDS: ENOXAPARIN SODIUM 30 MG/0.3 ML SQ SCH (09:20)
[2022-02-27] MEDS: MIDODRINE HCL 5 MG TABLET PO SCH ×3 (09:20→20:32)
[2022-02-27] MEDS: TRAMADOL HCL 50 MG TABLET PO PRN (09:32)
[2022-02-27] MEDS: ATORVASTATIN 40 MG TABLET PO SCH (20:32)
[2022-02-28 05:21] VITALS: BP 139/64
[2022-02-28] MEDS: INSULIN HUMULIN R 100 UNIT/ML 3ML SQ SCH ×4 (06:41→21:00)
[2022-02-28 07:57] VITALS: BP 138/70
[2022-02-28] MEDS: ASPIRIN 81 MG EC TAB PO SCH (10:10)
[2022-02-28] MEDS: EZETIMIBE 10 MG TAB PO SCH (10:10)
[2022-02-28] MEDS: FAMOTIDINE 20MG TAB PO SCH (10:10)
[2022-02-28] MEDS: ENOXAPARIN SODIUM 30 MG/0.3 ML SQ SCH (10:11)
[2022-02-28] MEDS: CITALOPRAM 20 MG TABLET PO SCH (10:14)
[2022-02-28] MEDS: MIDODRINE HCL 5 MG TABLET PO SCH ×2 (10:15→15:24)
[2022-02-28] MEDS ORDERED: FUROSEMIDE 20 MG TABLET PO SCH (11:30)
[2022-02-28] MEDS ORDERED: FUROSEMIDE 20MG VIAL IV SCH (12:00)
[2022-02-28 12:05] VITALS: BP 122/57
[2022-02-28] MEDS: CLOPIDOGREL 75MG TAB PO SCH (12:23)
[2022-02-28 16:00] VITALS: BP 129/57
[2022-02-28 20:00] VITALS: BP 129/69
[2022-02-28] MEDS: ATORVASTATIN 40 MG TABLET PO SCH (21:35)
[2022-02-28 23:58] VITALS: BP 150/68
[2022-03-01] MEDS: ACETAMINOPHEN 325 MG TAB PO PRN (02:45)
[2022-03-01 04:14] VITALS: BP 158/68
[2022-03-01] MEDS: INSULIN HUMULIN R 100 UNIT/ML 3ML SQ SCH ×3 (06:39→15:55)
[2022-03-01 08:00] VITALS: BP 143/88
[2022-03-01] MEDS: ASPIRIN 81 MG EC TAB PO SCH (08:25)
[2022-03-01] MEDS: CITALOPRAM 20 MG TABLET PO SCH (08:25)
[2022-03-01] MEDS: FAMOTIDINE 20MG TAB PO SCH (08:25)
[2022-03-01] MEDS: EZETIMIBE 10 MG TAB PO SCH (08:25)
[2022-03-01] MEDS: ENOXAPARIN SODIUM 30 MG/0.3 ML SQ SCH (08:27)
[2022-03-01] MEDS: CLOPIDOGREL 75MG TAB PO SCH (08:27)
[2022-03-01] MEDS ORDERED: FUROSEMIDE 20 MG TABLET PO SCH (09:00)
[2022-03-01 11:26] VITALS: BP 142/71
[2022-03-01 15:54] VITALS: BP 140/66
== END 2022-03-01 17:47 | DRG 235 ==
LOC: EDH 13:52 → EDHIP 15:30 → 2DH 21:48 → 2CV 02-23 14:33 → 2BH 02-24 13:43 → 2AH 02-27 07:01
PROVIDERS: ADMIT Internal Medicine Infectious Disease; ATTEND Internal Medicine Infectious Disease
PROC: 5A1221Z Performance of Cardiac Output, Continuous (ICD-10-PCS; 2022-02-23)
PROC: 03HY32Z Insertion of Monitoring Device into Upper Artery, Percutaneous Approach (ICD-10-PCS; 2022-02-23)
PROC: 4A133B1 Monitoring of Arterial Pressure, Peripheral, Percutaneous Approach (ICD-10-PCS; 2022-02-23)
PROC: 4A133J1 Monitoring of Arterial Pulse, Peripheral, Percutaneous Approach (ICD-10-PCS; 2022-02-23)
PROC: 05HY33Z Insertion of Infusion Device into Upper Vein, Percutaneous Approach (ICD-10-PCS; 2022-02-23)
PROC: 30233N1 Transfusion of Nonautologous Red Blood Cells into Peripheral Vein, Percutaneous Approach (ICD-10-PCS; 2022-02-23)
PROC: 02100Z9 Bypass Coronary Artery, One Artery from Left Internal Mammary, Open Approach (ICD-10-PCS; principal; 2022-02-23 14:00)
PROC: 021009W Bypass Coronary Artery, One Artery from Aorta with Autologous Venous Tissue, Open Approach (ICD-10-PCS; 2022-02-23 14:00)
PROC: 06BQ4ZZ Excision of Left Saphenous Vein, Percutaneous Endoscopic Approach (ICD-10-PCS; 2022-02-23 14:00)
DX: T82.855A Stenosis of coronary artery stent, initial encounter (principal); I21.4 Non-ST elevation (NSTEMI) myocardial infarction; I50.23 Acute on chronic systolic (congestive) heart failure; I47.1 Supraventricular tachycardia; I13.0 Hypertensive heart and chronic kidney disease with heart failure and stage 1 through stage 4 chronic kidney disease, or unspecified chronic kidney disease; D62 Acute posthemorrhagic anemia; E78.2 Mixed hyperlipidemia; E78.5 Hyperlipidemia, unspecified; F41.9 Anxiety disorder, unspecified; I25.5 Ischemic cardiomyopathy; N18.9 Chronic kidney disease, unspecified; Z20.822 Contact with and (suspected) exposure to COVID-19; E78.00 Pure hypercholesterolemia, unspecified; Z90.49 Acquired absence of other specified parts of digestive tract; Z95.5 Presence of coronary angioplasty implant and graft; E11.51 Type 2 diabetes mellitus with diabetic peripheral angiopathy without gangrene; Z90.710 Acquired absence of both cervix and uterus; Z83.3 Family history of diabetes mellitus; Z79.82 Long term (current) use of aspirin; Z79.899 Other long term (current) drug therapy; Z79.02 Long term (current) use of antithrombotics/antiplatelets; Z79.84 Long term (current) use of oral hypoglycemic drugs; Z82.49 Family history of ischemic heart disease and other diseases of the circulatory system; K21.9 Gastro-esophageal reflux disease without esophagitis; I25.119 Atherosclerotic heart disease of native coronary artery with unspecified angina pectoris; E11.22 Type 2 diabetes mellitus with diabetic chronic kidney disease; E87.70 Fluid overload, unspecified; I25.2 Old myocardial infarction; Y84.0 Cardiac catheterization as the cause of abnormal reaction of the patient, or of later complication, without mention of misadventure at the time of the procedure; Y92.89 Other specified places as the place of occurrence of the external cause
CPT/HCPCS: 36415; 36430; 36600; 71045; 74177; 80048; 80053; 80061; 81001; 82150; 82435; 82550; 82803; 82947; 82948; 83036; 83605; 83735; 83874; 83880; 84100; 84132; 84295; 84484; 85018; 85025; 85027; 85384; 85610; 85730; 86850; 86900; 86901; 86923; 87635; 93005; 93880; 94002; 94003; 94010; 94150; 97039; 99291; A7048; C1757; C9113; G0378; J0171; J0282; J0610; J0690; J1644; J1650; J1815; J1940; J2001; J2250; J2405; J2440; J2704; J2720; J2795; J3010; J3475; J3480; J3490; J7030; J7040; J7050; J7060; P9016; P9045; Q9967

== ENCOUNTER → 2022-09-14 | Outpatient (CLI) | payer MEDICARE ==
[~2022-09-14] MED LIST changes: +CLOP-31 PO; -CLOP75TA14 PO; -PANT40TA PO; +TRAZ-187 PO
[2022-09-14 12:40] LABS: CREATININE 0.8 mg/dL (0.5-1.5); POTASSIUM 4.3 mmol/L (3.5-5.1)
== END | disposition home or self-care (01) ==
LOC: LAB 08:45
PROVIDERS: ATTEND Internal Medicine Cardiovascular Disease
DX: I25.5 Ischemic cardiomyopathy (principal)
CPT/HCPCS: 36415; 80048

== ENCOUNTER → 2022-12-25 | Outpatient (CLI) | payer MEDICARE | END | disposition home or self-care (01) | LOC: SHCH 09:11 | PROVIDERS: ATTEND Internal Medicine Cardiovascular Disease | DX: I11.9 Hypertensive heart disease without heart failure (principal); I25.5 Ischemic cardiomyopathy; I05.9 Rheumatic mitral valve disease, unspecified; E11.9 Type 2 diabetes mellitus without complications; E78.5 Hyperlipidemia, unspecified | CPT/HCPCS: 93306 ==